=== PATIENT | female | born 1945 | race Caucasian/White ===

== ENCOUNTER 2017-08-11 05:03 | Inpatient (IN) ==
[2017-08-05 14:57] LABS: Appearance,Urine CLEAR; Bilirubin,Urine NEG (NEG); Color,Urine YELLOW; Glucose,Urine (UA) NEGATIVE (NEG); Leukocyte Esterase,Urine NEG /uL (NEG); Protein,Urine NEG (NEG); Specific Gravity,Urine 1.021 (1.000-1.035); Urine Blood NEG mg/dL (<0.03); Urobilinogen,Urine NEG (NEG)
[2017-08-05 16:32] LABS: Blood Urea Nitrogen 18 mg/dl (8-23)
[2017-08-05 16:33] LABS: Basophils # (Auto) 0.1 K/mcL (0.0-0.3); Basophils % (Auto) 0.5 % (0.0-2.0); Eosinophils # (Auto) 0.3 K/mcL (0.0-0.7); Eosinophils % (Auto) 1.9 % (0.0-7.0); Granulocytes % (Auto) 63.3 % (38.0-78.0); Lymphocytes % (Auto) 28.9 % (15.5-49.0); Mean Cell Volume 92.9 fL (80.0-100.0); Mean Corpuscular HGB Conc 33.1 g/dL (31.0-36.0); Mean Corpuscular Hemoglobin 30.7 pg (26.0-34.0); Monocytes # (Auto) 0.8 K/mcL (0.1-0.9); Monocytes % (Auto) 5.4 % (1.0-12.0); Platelet Count 307 K/mcL (140-440); RBC 4.36 M/mcL (4.00-5.20); Red Cell Distribution Width 14.4 % (11.5-14.5)
[2017-08-11] MEDS ORDERED: PREGABALIN 75 MG CAPSULE PO SCH (07:00)
[2017-08-11] MEDS ORDERED: CLINDAMYCIN 600 MG in DEXTROSE 5% IN WATER 50 ML IV SCH (07:00)
[2017-08-11] MEDS ORDERED: oxyCODONE 10 MG TAB.ER.12H PO SCH (07:00)
[2017-08-11] MEDS ORDERED: IPRATROPIUM/ALBUTEROL 3 ML AMPUL.NEB NEB ONE (07:04)
[2017-08-11] MEDS ORDERED: HEPARIN 20,000 UNIT/ML VIAL IR ONE (07:30)
[2017-08-11] MEDS ORDERED: PHENYLEPHRINE 10 MG/ML VIAL IV ONE (07:45)
[2017-08-11] MEDS ORDERED: LIDOCAINE HCL/PF 100 MG/5 ML SYRINGE IV ONE (07:45)
[2017-08-11] MEDS ORDERED: ONDANSETRON 4 MG/2 ML VIAL IV ONE (07:45)
[2017-08-11] MEDS ORDERED: MIDAZOLAM 5 MG/5 ML VIAL IV ONE (07:45)
[2017-08-11] MEDS ORDERED: DEXAMETHASONE 10 MG/ML VIAL IV ONE (07:45)
[2017-08-11] MEDS ORDERED: TRANEXAMIC ACID 1,000 MG/10 ML VIAL IV ONE ×2 (07:45→09:06)
[2017-08-11] MEDS ORDERED: PROPOFOL 200 MG/20 ML VIAL IV ONE (07:45)
[2017-08-11] MEDS ORDERED: SUCCINYLCHOLINE 20 MG/ML ML IV ONE (07:45)
[2017-08-11] MEDS ORDERED: KETAMINE 100 MG/ML ML IV ONE (07:45)
[2017-08-11] MEDS ORDERED: METHOCARBAMOL 1,000 MG/10 ML VIAL IV PRN (08:55)
[2017-08-11] MEDS ORDERED: HYDROmorphone 2 MG/ML VIAL IV PRN (08:55)
[2017-08-11] MEDS ORDERED: METOPROLOL TARTRATE 5 MG/5 ML VIAL IV PRN (08:55)
[2017-08-11] MEDS ORDERED: IPRATROPIUM/ALBUTEROL 3 ML AMPUL.NEB NEB PRN (08:55)
[2017-08-11] MEDS ORDERED: PROMETHAZINE 25 MG/ML VIAL IV PRN (08:55)
[2017-08-11] MEDS ORDERED: MEPERIDINE 50 MG/ML INJECTION IM PRN (08:55)
[2017-08-11] MEDS ORDERED: ePHEDrine 50 MG/ML AMPUL IV PRN (08:55)
[2017-08-11] MEDS ORDERED: NALOXONE HCL 0.4 MG/ML VIAL IV PRN (08:55)
[2017-08-11] MEDS ORDERED: diphenhydrAMINE 50 MG/ML VIAL IV PRN (08:55)
[2017-08-11] MEDS ORDERED: ATROPINE SULFATE 0.4 MG/ML VIAL IV PRN (08:55)
[2017-08-11] MEDS ORDERED: fentaNYL 100 MCG/2 ML VIAL IV PRN (08:55)
[2017-08-11] MEDS ORDERED: ONDANSETRON 4 MG/2 ML VIAL IV PRN ×2 (08:55→09:06)
[2017-08-11] MEDS ORDERED: ACETAMINOPHEN 1,000 MG/100 ML BOTTLE IV ONE (08:55)
[2017-08-11] MEDS ORDERED: FLUMAZENIL 0.1 MG/ML ML IV PRN (08:55)
[2017-08-11] MEDS ORDERED: LORazepam 2 MG/ML VIAL IV ONE (08:56)
[2017-08-11] MEDS ORDERED: LACTATED RINGERS 1,000 ML IV SCH (09:00)
--- NOTE | 2017-08-11 09:05 | Brief Operative Note ---
Date of procedure: 08/11/17 Pre-op diagnosis: Left hip DJD Post-op diagnosis: same Procedure: Left anterior total hip arthroplasty Grafts/Implants: Yes (Depuy Corail 15 std stem, +1.5 36 delta head, 54 cup, neutral altrx liner) Anesthesia: GETA, spinal Findings: delamination of cartilage from femoral head Surgeon: Augie Brian Furnace Caretaker: Dmitry Ramirez Estimated blood loss (cc): 150 Specimens Removed/Pathology: none sent Condition: stable Disposition: PACU
[2017-08-11] MEDS ORDERED: MAGNESIUM HYDROXIDE 30 ML ORAL.SUSP PO PRN (09:06)
[2017-08-11] MEDS ORDERED: VANCOMYCIN 1,000 MG in 0.9 % SODIUM CHLORIDE 250 ML IV ONE (09:06)
[2017-08-11] MEDS ORDERED: KETOROLAC 30 MG/ML VIAL IV PRN (09:06)
[2017-08-11] MEDS ORDERED: BISACODYL 10 MG SUPP.RECT PR PRN (09:06)
[2017-08-11] MEDS ORDERED: FLEETS ADULT ENEMA PR PRN (09:06)
[2017-08-11] MEDS ORDERED: BENZOCAINE/MENTHOL 1 LOZENGE PO PRN (09:06)
[2017-08-11] MEDS ORDERED: POLYETHYLENE GLYCOL 3350 17 GM PACKET PO PRN (09:06)
--- NOTE | 2017-08-11 10:15 | Operative Note ---
DATE OF OPERATION: 08/11/2017 PREOPERATIVE DIAGNOSIS: Left hip severe degenerative joint disease. POSTOPERATIVE DIAGNOSIS: Left hip severe degenerative joint disease. PROCEDURE PERFORMED: Left anterior total hip arthroplasty placing a DePuy Corail 15 standard femoral stem; a +1.5, 36 mm delta ceramic head ball on a 54 [place] cup with a neutral AltrX liner. SURGEON: Augie Brian M.D. JOINTER MACHINE OPERATOR: Chapincito Ramirez PA-C. ANESTHESIA: Spinal plus general. DRAINS: None. SPECIMENS: Femoral head and reamings which were discarded. BLOOD LOSS: 150 mL. COMPLICATIONS: None. POSTOPERATIVE CONDITION: Stable. INDICATIONS FOR SURGERY: This is a 72-year-old female who has had progressive worsening severe left hip pain. X-rays showed advanced arthrosis. FINDINGS AT SURGERY: She had severe arthrosis with actual delamination of the articular cartilage from the femoral head. Post implantation showed symmetrical leg lengths and offset. PROCEDURE IN DETAIL: The patient had been seen preoperatively. Informed consent had been obtained after discussion of risks and benefits of surgery. Risks including, but not limited to, bleeding, possibly requiring transfusion; infection, possibly requiring implant removal and prolonged IV antibiotics; injury to nerves, blood vessels and other surrounding structures; anesthetic risks; leg length discrepancy; dislocation; fracture; DVT and pulmonary embolus risks; and the possibility of needing further revision surgery. She understood these risks and wished to proceed. Correct operative site was marked, and the patient was taken to the operating room after spinal anesthesia was given. LMA general was given and then the patient was carefully prepped and draped in normal sterile fashion. A scalpel was used to make an anterior approach incision through skin and subcutaneous tissue. Hemostasis was obtained with Bovie cautery. Continued blunt dissection down onto the tensor fascia and then this was undermined circumferentially. Irrisept was irrigated and then a ring retractor placed. Tensor fascia was incised in line with muscle belly and then careful blunt dissection was taken medial to the muscle belly. Blunt cobra was placed on the superior and inferior neck. Circumflex vessels were coagulated and cut and vastus fascia split distally. Anterior capsulectomy was performed and capsule releases taken out to the trochanters. Corkscrew was placed in the femoral head and at this point was when we noted the delamination. Osteotome was used under fluoro to identify our neck cut level. Oscillating saw was used to perform our neck cut. The head was levered out and the acetabulum exposed. Labrum was excised circumferentially, as well as soft tissue from the floor. We then started reaming, initially directly medializing to the tear drop and then increasing in reamer size and angle until a 53 reamer got some rim ream. We opened a 54 cup. Acetabulum was irrigated with Irrisept, after a minute we pulse lavaged. We then used the [id number] to insert the cup at approximately 40 degrees of inclination and 25 degrees of anteversion. We got excellent press-fit, so we went ahead and opened a center hole cover and placed this, and then a neutral AltrX liner was carefully aligned and impacted. We then externally rotated the leg and released traction. We released capsule around the medial and posterior neck and then the leg was extended and adducted. Box osteotome was used to gain canal entry and then a rongeur and rasp used to lateralize. We then began sequentially broaching with the Corail broaches using the [id number] until a 15 seated just below our neck cut which was the same as opposite side. We calcar planed and then trialed with a standard neck and a +1.5 head ball. Hip was reduced without excessive tension. AP pelvis was used to verify neutral rotation and then AP of the nonoperative and operative sides were taken and overlaid which showed symmetrical leg length and offset. There was also good fill of the femoral canal. We went ahead and redislocated and re-exposed the proximal femur. Trials were removed. A 15 Corail stem was open. We irrigated the femoral canal with Irrisept, after a minute pulse lavaged with saline, and then impacted the stem until it was seated upon its collar. We then opened a +1.5, 36 delta head ball. The stem was carefully cleaned and dried and then the head ball briskly impacted with the [id number]. We then reduced the hip without difficulty. Final fluoro images were taken and saved. We did a final Irrisept irrigation of the joint, after a minute pulse lavaged with saline. A #1 Vicryl running stitch was used to close the tensor fascia, one running proximal, one running distal. Ring retractor was removed and Irrisept irrigated, and then after a minute pulse lavage. Fat was tacked to fascia with Vicryl and 2-0 Monocryl for subcutaneous and catie for skin. Xeroform and sterile dressing were applied. The patient was then awakened, extubated, and transferred to recovery in stable condition. LAYA:gloria Job ID: [id number] Doc ID: [id number] Augie Brian MD
--- NOTE | 2017-08-11 10:38 | XRay Report ---
CLINICAL INFORMATION: Status post left hip replacement TECHNIQUE: AP pelvis. AP and lateral left hip COMPARISON: None. FINDINGS: Bilateral total hip arthroplasty. Patient is status post left hip replacement. Left acetabular and femoral head components are in anatomic positions. There is postsurgical soft tissue and intra-articular gas. There are skin catie overlying the left hip. IMPRESSION: Status post left total hip arthroplasty Interpreted and Authenticated by: Peterson Hobbs 08/11/17
[2017-08-11] MEDS: HYDROmorphone 2 MG/ML VIAL IV PRN (11:03)
[2017-08-11] MEDS: 0.9 % SODIUM CHLORIDE 1,000 ML IV SCH ×2 (12:00→20:05)
--- NOTE | 2017-08-11 14:38 | XRay Report ---
CLINICAL INFORMATION: Left hip replacement TECHNIQUE: 0.4 minutes fluoroscopy utilized. Left total hip arthroplasty performed COMPARISON: None. FINDINGS: Spot films demonstrate anatomic positioning of left femoral head and acetabular prosthesis. IMPRESSION: Left total hip arthroplasty Interpreted and Authenticated by: Peterson Hobbs 08/11/17
[2017-08-11] MEDS: 0.9 % SODIUM CHLORIDE 10 ML SYRINGE IV SCH ×2 (14:53→20:07)
[2017-08-11] MEDS: oxyCODONE/APAP 5/325MG TABLET PO PRN (20:05)
[2017-08-11] MEDS: DOCUSATE SODIUM 100 MG CAPSULE PO SCH (20:05)
[2017-08-11] MEDS: ASPIRIN 325 MG ENTERIC COATED TABLET PO SCH (20:06)
[2017-08-11] MEDS: SENNOSIDES 1 TABLET PO SCH (20:06)
[2017-08-11] MEDS: SIMVASTATIN 10 MG TABLET PO SCH (20:07)
[2017-08-11] MEDS: METOPROLOL SUCCINATE 25 MG TAB.XL.24H PO SCH (20:09)
[2017-08-12] MEDS: oxyCODONE/APAP 5/325MG TABLET PO PRN ×5 (02:18→22:58)
[2017-08-12] MEDS: HYDROmorphone 2 MG/ML VIAL IV PRN ×2 (02:53→22:58)
[2017-08-12] MEDS: 0.9 % SODIUM CHLORIDE 1,000 ML IV SCH ×2 (05:08→16:00)
[2017-08-12] MEDS: 0.9 % SODIUM CHLORIDE 10 ML SYRINGE IV SCH ×3 (05:49→22:59)
[2017-08-12] MEDS: ASCORBIC ACID 500 MG TABLET PO SCH (07:00)
[2017-08-12] MEDS: DOCUSATE SODIUM 100 MG CAPSULE PO SCH ×2 (07:00→20:17)
[2017-08-12] MEDS: ASPIRIN 325 MG ENTERIC COATED TABLET PO SCH ×2 (07:00→20:17)
[2017-08-12] MEDS: CITALOPRAM 20 MG TABLET PO SCH (07:00)
[2017-08-12] MEDS: LEVOTHYROXINE 125 MCG TABLET PO SCH (07:01)
--- NOTE | 2017-08-12 07:46 | Orthopedic Progress Note ---
Orthopedics - Auxillary Note - Subjective Patient Information: Note initiated : 08/12/17 at 7:46 am Service Date, if different from initiated Date: [] Patient: Rosa Banuelos 72 y/o F admitted on 08/11/17 for Left Total Hip Arthroplasty. Chief Complaint: mild to moderate pain Vital Signs Temp Pulse Resp BP Pulse Ox 08/12/17 07:22 97.6 F 55 L 22 101/60 95 08/12/17 03:44 98.3 F 54 L 22 110/65 94 08/12/17 00:00 98.8 F 62 22 107/65 96 08/11/17 20:00 98.3 F 63 22 118/71 95 08/11/17 16:30 98.5 F 16 126/75 97 08/11/17 12:50 14 119/66 95 08/11/17 12:00 97.3 F 16 104/62 95 08/11/17 11:30 12 117/74 97 08/11/17 11:05 16 147/75 98 08/11/17 10:45 16 136/80 98 08/11/17 10:35 97.6 F 16 138/77 95 08/11/17 10:30 95 08/11/17 10:15 97.8 F 73 13 132/64 95 08/11/17 10:00 74 12 112/74 95 08/11/17 09:45 71 16 101/66 97 08/11/17 09:27 97.3 F 72 16 124/74 95 Intake and Output 08/11/17 08/12/17 08/12/17 21:59 05:59 13:59 Intake Total 920 / 920 1650 / 1650 Output Total 1426 / 1426 1151 / 1151 Balance -506 / -506 499 / 499 Intake: IV 1000 / 1000 Sodium Chloride 0.9% 1,000 ml @ 1000 / 1000 100 mls/hr IV .Q10H [facility] Rx#: [id number] Oral 220 / 220 650 / 650 GI Tube Flush 700 / 700 Output: Void Amount 1425 / 1425 1150 / 1150 # of times incontinent of urine Other: Meal Fruit cup, ice cream Percent of Meal Consumed 100% Feeding Ability Independent Weight 180 lb 8 oz Laboratory Results - last 24 hr 08/12/17 04:30 Hgb 10.1 L Hct 30.7 L s/p L SALINA-stable mobilize with PT
[2017-08-12] MEDS: METOPROLOL SUCCINATE 25 MG TAB.XL.24H PO SCH (20:17)
[2017-08-12] MEDS: SENNOSIDES 1 TABLET PO SCH (20:17)
[2017-08-12] MEDS: SIMVASTATIN 10 MG TABLET PO SCH (20:17)
[2017-08-13] MEDS: oxyCODONE/APAP 5/325MG TABLET PO PRN ×5 (04:13→19:07)
[2017-08-13] MEDS: 0.9 % SODIUM CHLORIDE 10 ML SYRINGE IV SCH ×3 (05:39→22:34)
[2017-08-13] MEDS: LEVOTHYROXINE 125 MCG TABLET PO SCH (07:46)
--- NOTE | 2017-08-13 07:52 | Discharge Summary ---
Providers - Providers Patient information: Note initiated : 08/13/17 at 7:48 am Service Date, if different from initiated Date: [] Patient: Rosa Banuelos 72 y/o F admitted on 08/11/17 for Left Total Hip Arthroplasty. Chief Complaint: [] Discharge date: 08/13/17 Hospitalization Hospital course: Pt was admitted for a SALINA. She underwent the procedure on the day of admission. She spent 3 nights on the floor for IV pain meds, IV abx, and PT. SHe discharged on post-op day 3. She was prescribed appropriate pain meds and ASA for DVT prophylaxis. Will f/u at [facility] in 2 weeks. Discharge diagnosis: L hip OA Exam - Exam Clean and dry: Yes Weight bearing status: as tolerated Ortho Discharge - SALINA - Patient Instructions Diet: Regular Diet Activity: activity as tolerated Total Hip Protocol: Follow activity instructions as provided by Physical Therapy. Dressing Care: May shower in 2 days Patient Education: Minimally Invasive Total Hip Replacement (DC) Additional Instructions: Discharge Instructions: Do the exercises at home that physical therapy gave you throughout the day. Wear comfortable clothing for your physical therapy. Weight bearing as tolerated. You have the Aquacel Ag dressing, leave in place for 7 days then remove. If dressing becomes soiled (turns black), remove and use gauze 4x4 dressing and silvasorb ointment and change daily. Keep incision clean and dry. You may start showering on post op day #2. To avoid constipation while taking any narcotic pain medication, take an over the counter stool softener/laxative. Use ice packs as directed, on for 20 minutes at a time throughout the day. This and elevation will help with pain and swelling. Call your physician for fevers above 100.5 or pain not controlled by medication. Your prescriptions are with your discharge information. Some medications were electronically transmitted to your pharmacy of choice. - Follow Up Plan Follow Up Appointments: Augie Brian MD [Physician] - Disposition: Home, Self-Care Prognosis: Good Rehab Potential: Good Overall status at discharge: patient is progressing back to baseline - Orders For Discharge Prescriptions: Aspirin [Ecotrin] 325 mg PO BID #60 tab.ec oxyCODONE/APAP [Percocet 5-325 mg] 1 - 2 tab PO Q4HP PRN #90 tab PRN Reason: Pain Level 3-6 Pending Studies Resuscitation Status Full Code Diet Regular Diet Start WedAug 11 906 Ascorbic Acid (Vitamin C) 500 mg PO DAILY [facility] Last Admin: 08/12/17 07:00 Dose: 500 mg Aspirin (Ecotrin) 325 mg PO BID [facility] Last Admin: 08/12/17 20:17 Dose: 325 mg Admin: 08/12/17 07:00 Dose: 325 mg Admin: 08/11/17 20:06 Dose: 325 mg Citalopram Hydrobromide (Celexa) 20 mg PO DAILY [facility] Last Admin: 08/12/17 07:00 Dose: 20 mg Docusate Sodium (Colace) 100 mg PO BID [facility] Last Admin: 08/12/17 20:17 Dose: 100 mg Admin: 08/12/17 07:00 Dose: 100 mg Admin: 08/11/17 20:05 Dose: 100 mg Hydromorphone HCl (Dilaudid) 0 mg IV Q2HP PRN PRN Reason: PAIN LEVEL > 6 Last Admin: 08/12/17 22:58 Dose: 0.5 mg Admin: 08/12/17 02:53 Dose: 0.5 mg Admin: 08/11/17 11:03 Dose: 2 mg Levothyroxine Sodium (Synthroid) 125 mcg PO SUMOTUTHFRSA@0730 [facility] Last Admin: 08/13/17 07:46 Dose: 125 mcg Admin: 08/12/17 07:01 Dose: 125 mcg Metoprolol Succinate (Toprol Xl) 25 mg PO [facility] Last Admin: 08/12/17 20:17 Dose: 25 mg Admin: 08/11/17 20:09 Dose: 25 mg Oxycodone/Acetaminophen (Percocet 5-325 Mg) 0 tab PO Q4HP PRN PRN Reason: PAIN LEVEL 3-6 Last Admin: 08/13/17 04:13 Dose: 2 tab Admin: 08/12/17 22:58 Dose: 2 tab Admin: 08/12/17 18:51 Dose: 2 tab Admin: 08/12/17 12:36 Dose: 2 tab Admin: 08/12/17 07:08 Dose: 2 tab Admin: 08/12/17 02:18 Dose: 2 tab Admin: 08/11/17 20:05 Dose: 2 tab Senna (Senokot) 2 tab PO [facility] Last Admin: 08/12/17 20:17 Dose: 2 tab Admin: 08/11/17 20:06 Dose: 2 tab Simvastatin (Zocor) 10 mg PO HS [facility] Last Admin: 08/12/17 20:17 Dose: 10 mg Admin: 08/11/17 20:07 Dose: 10 mg Sodium Chloride (Saline Flush) 10 ml IV Q8 [facility] Last Admin: 08/13/17 05:39 Dose: 10 ml Admin: 08/12/17 22:59 Dose: 10 ml Admin: 08/12/17 14:53 Dose: 10 ml Admin: 08/12/17 05:49 Dose: 10 ml Admin: 08/11/17 20:07 Dose: Not Given Admin: 08/11/17 14:53 Dose: Not Given Shift Summary 08/13/17 05:06 Shift Summary by Shira Owen Pain was an issue tonight. Medicated just about every four hours with 2 tabs Percocet and one time dose 0.5 mg Dilaudid at around 2330. Up with 1 assist and FWW, encouraged to push call light when getting up r/t increased pain. Voids well in bathroom, has jamila-pad in place for dribbling. Dressing to left hip, OLLIE. 18G IV to left wrist. VSS on RA while awake, after dilaudid administration , placed on 2L O2 while sleeping. Will be here until Wednesday then, d/c to [facility] for rehab. HX of seizures, pads on bed. Initialized on 08/13/17 05:06 - END OF NOTE
[2017-08-13] MEDS: CITALOPRAM 20 MG TABLET PO SCH (08:04)
[2017-08-13] MEDS: ASCORBIC ACID 500 MG TABLET PO SCH (08:04)
[2017-08-13] MEDS: ASPIRIN 325 MG ENTERIC COATED TABLET PO SCH ×2 (08:04→22:33)
[2017-08-13] MEDS: DOCUSATE SODIUM 100 MG CAPSULE PO SCH ×2 (08:04→22:34)
--- NOTE | 2017-08-13 13:08 | Discharge Summary ---
Ortho Discharge - SALINA - Patient Instructions Diet: Regular Diet Activity: activity as tolerated Total Hip Protocol: Follow activity instructions as provided by Physical Therapy. Patient Education: Oxycodone/Acetaminophen (By mouth), Aspirin (By mouth), Minimally Invasive Total Hip Replacement (DC) Additional Instructions: Discharge Instructions: Do the exercises at home that physical therapy gave you throughout the day. Wear comfortable clothing for your physical therapy. Weight bearing as tolerated. You have the Aquacel Ag dressing, leave in place for 7 days then remove. If dressing becomes soiled (turns black), remove and use gauze 4x4 dressing and silvasorb ointment and change daily. Keep incision clean and dry. You may start showering on post op day #2. To avoid constipation while taking any narcotic pain medication, take an over the counter stool softener/laxative. Use ice packs as directed, on for 20 minutes at a time throughout the day. This and elevation will help with pain and swelling. Call your physician for fevers above 100.5 or pain not controlled by medication. Your prescriptions are with your discharge information. Some medications were electronically transmitted to your pharmacy of choice. - Follow Up Plan Follow Up Appointments: Augie Brian MD [Physician] - 08/26/17 10:40 am Disposition: [facility] Prognosis: Good Rehab Potential: Good I certify that the patient requires SNF services: Yes - Orders For Discharge Prescriptions: Aspirin [Ecotrin] 325 mg PO BID #60 tab.ec oxyCODONE/APAP [Percocet 5-325 mg] 1 - 2 tab PO Q4HP PRN #90 tab PRN Reason: Pain Level 3-6 Additional Discharge Orders: Physical Therapy at Discharge - SALINA Location: Determined By Patient Walker Location: Determined By Patient
--- NOTE | 2017-08-13 13:11 | Orthopedic Progress Note ---
Subjective Patient information: Note initiated : 08/13/17 at 1:09 pm Service Date, if different from initiated Date: [] Patient: Rosa Banuelos 72 y/o F admitted on 08/11/17 for Left Total Hip Arthroplasty. Chief Complaint: [] Principal diagnosis: s/p L total hip Objective Vital signs: Vital Signs Temp Pulse Resp BP Pulse Ox 08/13/17 11:28 98.7 F 16 112/67 94 08/13/17 06:58 96.7 F L 16 97/62 95 08/13/17 04:00 97.1 F 73 18 130/72 95 08/13/17 00:00 98.9 F 83 16 107/67 90 08/12/17 20:00 97.6 F 71 16 127/72 96 08/12/17 16:00 97.4 F 68 22 121/69 96 Intake and Output 08/12/17 08/13/17 08/13/17 21:59 05:59 13:59 Intake Total 650 / 650 400 / 400 125 / 125 Balance 650 / 650 400 / 400 125 / 125 Intake: Oral 650 / 650 400 / 400 125 / 125 Other: Meal Dinner Breakfast Percent of Meal Consumed 100% 50% Feeding Ability Independent Independent # Voids 1 1 1 Weight 177 lb 8 oz Intake & Output: Intake & Output 08/12/17 08/13/17 08/13/17 21:59 05:59 13:59 Intake Total 650 / 650 400 / 400 125 / 125 Balance 650 / 650 400 / 400 125 / 125 Weight 177 lb 8 oz Intake: Oral 650 / 650 400 / 400 125 / 125 Other: Meal Dinner Breakfast Percent of Meal Consumed 100% 50% Feeding Ability Independent Independent # Voids 1 1 1 Neurological exam IM: Yes alert, Yes oriented X3 - Labs CBC & BMP: 08/13/17 04:45 08/05/17 13:37 Labs: 08/13/17 08/12/17 08/05/17 04:45 04:30 13:37 Hgb 9.0 L 10.1 L 13.4 Hct 27.7 L 30.7 L 40.5 Assessment and Plan (1) Status post total hip replacement, left POD#2-complaining if difficulty lifting leg into bed and pain. -pain control -PT -d/c planning for swing bed transfer to [facility] tomorrow Status: Acute
[2017-08-13] MEDS: HYDROmorphone 2 MG/ML VIAL IV PRN (13:20)
[2017-08-13] MEDS: METOPROLOL SUCCINATE 25 MG TAB.XL.24H PO SCH (22:33)
[2017-08-13] MEDS: SENNOSIDES 1 TABLET PO SCH (22:33)
[2017-08-13] MEDS: SIMVASTATIN 10 MG TABLET PO SCH (22:34)
[2017-08-14] MEDS: oxyCODONE/APAP 5/325MG TABLET PO PRN ×3 (01:48→11:01)
[2017-08-14] MEDS: 0.9 % SODIUM CHLORIDE 10 ML SYRINGE IV SCH (05:09)
--- NOTE | 2017-08-14 07:11 | Orthopedic Progress Note ---
Subjective Patient information: Note initiated : 08/14/17 at 7:09 am Service Date, if different from initiated Date: [] Patient: Rosa Banuelos 72 y/o F admitted on 08/11/17 for Left Total Hip Arthroplasty. Chief Complaint: [POD #3 s/p left anterior SALINA Doing well. Still reports she can't raise her left leg from the hip. She can actively fire the quadriceps and bend the knee. She denies numbness, tingling, calf pain, CP or SOB. ] Principal diagnosis: s/p L total hip Objective Vital signs: Vital Signs Temp Pulse Resp BP Pulse Ox 08/14/17 06:55 98.2 F 16 116/63 95 08/14/17 04:00 99.0 F H 68 12 110/65 94 08/13/17 23:43 98.6 F 78 16 103/60 93 08/13/17 19:13 98.4 F 67 14 114/70 96 08/13/17 16:00 98.1 F 18 125/71 95 08/13/17 11:28 98.7 F 16 112/67 94 Intake and Output 08/13/17 08/14/17 08/14/17 21:59 05:59 13:59 Intake Total 580 / 580 250 / 250 Output Total 325 / 325 Balance 580 / 580 -75 / -75 Intake: Oral 580 / 580 250 / 250 Output: Void Amount 325 / 325 Other: Meal Dinner Percent of Meal Consumed 75% Feeding Ability Independent # Voids 3 1 Weight 174 lb 8 oz Intake & Output: Intake & Output 08/13/17 08/14/17 08/14/17 21:59 05:59 13:59 Intake Total 580 / 580 250 / 250 Output Total 325 / 325 Balance 580 / 580 -75 / -75 Weight 174 lb 8 oz Intake: Oral 580 / 580 250 / 250 Output: Void Amount 325 / 325 Other: Meal Dinner Percent of Meal Consumed 75% Feeding Ability Independent # Voids 3 1 Incision: Yes healing, No draining, No red, No swollen, No inflamed Incision clean and dry: Yes Dressing: Yes clean, Yes dry, Yes intact Weight bearing status: as tolerated Range of motion: full b/l ankles, feet, knees Neurological exam IM: Yes alert, Yes oriented X3, Yes motor sensory intact, Yes neurovascular intact Extremities exam IM: No calf tenderness, Yes normal capillary refill, Yes normal inspection, No Sofy's sign, Yes Foot pink and warm, Yes neurovascular intact - Periperhal Pulses Peripheral pulses: 2+: dorsalis pedis (L), dorsalis pedis (R), posterior tibialis (L), posterior tibialis (R) - Labs CBC & BMP: 08/13/17 04:45 08/05/17 13:37 Labs: 08/14/17 08/13/17 08/12/17 04:40 04:45 04:30 Hgb Pending 9.0 L 10.1 L Hct Pending 27.7 L 30.7 L 08/05/17 13:37 Hgb 13.4 Hct 40.5 Assessment and Plan (1) Status post total hip replacement, left POD #3 s/p left anterior SALINA: -pain control -d/c to [facility] swing bed today -DVT prophylaxis per Dr. Brian -PT at [facility] Status: Acute
[2017-08-14] MEDS: DOCUSATE SODIUM 100 MG CAPSULE PO SCH (08:03)
[2017-08-14] MEDS: LEVOTHYROXINE 125 MCG TABLET PO SCH (08:03)
[2017-08-14] MEDS: ASCORBIC ACID 500 MG TABLET PO SCH (08:04)
[2017-08-14] MEDS: ASPIRIN 325 MG ENTERIC COATED TABLET PO SCH (08:04)
[2017-08-14] MEDS: CITALOPRAM 20 MG TABLET PO SCH (08:04)
[2017-08-18] MEDS ORDERED: LEVOTHYROXINE 125 MCG TABLET PO SCH (07:30)
== END 2017-08-14 11:01 | disposition other institution (70) | DRG 470 ==
LOC: MEDSUR 05:03
PROVIDERS: ADMIT Orthopaedic Surgery; ATTEND Orthopaedic Surgery